=== PATIENT | female | born 1965 | race African-American/Black ===

== ENCOUNTER 2016-09-17 05:06 | Emergency (ER) | payer MEDICAID, OTHER ==
[~2016-09-17] VITALS: Ht 167.6 cm; Wt 69.9 kg
--- NOTE | 2016-09-17 05:07 | NUR ---
IN RESTROOM. AWARE
--- NOTE | 2016-09-17 05:15 | NUR ---
51 YO FEMALE BB SELF. 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 PT DENIES SOB, N/V, RADIATING PAIN OR ANY OTHER MEDICAL COMPLAINTS. PT AMBULATED TO ER BED ITH STEAY AGIT, SKIN WARM AND DRY, RR EVEN AND UNLABORED. PT GOWNED, PLACED ON ELECTROMECHANICAL TECHNOLOGIST. AWAITING ORDERS FROM PROVIDER, WILL CONTINUE TO MONITOR
--- NOTE | 2016-09-17 05:18 | NUR ---
MD STEVESN AT BED SIDE FOR EVAL
--- NOTE | 2016-09-17 05:21 | NUR ---
18G LEFT AC IV STARTED, BLOOD SAMPLE OBTAINED AND SENT TO LAB
[2016-09-17] MEDS ORDERED: SUMATRIPTAN SUCCINATE 6 MG/0.5 ML VIAL SQ ONE ×2 (05:30→05:33)
[2016-09-17] MEDS ORDERED: IV NS 0.9% 1,000 ML BAG IV ONE (05:30)
[2016-09-17] MEDS ORDERED: METOCLOPRAMIDE HCL 10 MG/2 ML VIAL IV ONE (05:30)
[2016-09-17] MEDS ORDERED: IV SET PRIMARY 1 EA INFUS.SET MC ONE (05:33)
[2016-09-17] MEDS ORDERED: METOCLOPRAMIDE HCL 10 MG/2 ML VIAL ONE (05:33)
[2016-09-17] MEDS ORDERED: IV NS 0.9% 1,000 ML ONE (05:33)
--- NOTE | 2016-09-17 05:35 | NUR ---
MEDICATED PT ORDERED
[2016-09-17 05:42] LABS: BASOPHILS # (AUTO) 0.1 /CMM (0.0-0.2); BASOPHILS % (AUTO) 0.9 % (0.0-2.0); EOSINOPHILS # (AUTO) 0.3 /CMM (0.0-0.7); EOSINOPHILS % (AUTO) 4.4 % (0.0-6.0); HEMATOCRIT 38 % (33-45); LYMPHOCYTES % (AUTO) 33.4 % (20.0-44.0); MEAN CORPUSCULAR HEMOGLOBIN 31 PG (26.0-33.0); MEAN CORPUSCULAR HGB CONC 34 g/dl (31.0-36.0); MEAN CORPUSCULAR VOLUME 91 fL (82-100); MONOCYTES # (AUTO) 0.5 /CMM (0.1-1.30); MONOCYTES % (AUTO) 8.5 % (2.0-12.0); NEUTROPHILS # (AUTO) 3.1 /CMM (1.8-8.9); NEUTROPHILS % (AUTO) 52.8 % (43.0-81.0); PLATELET COUNT (AUTO) 288 /CMM (150-450); RDW COEFFICIENT OF VARIATION 13.6 (11.5-15.0); RED BLOOD CELL COUNT(AUTO) 4.15 MIL/uL (4.0-5.2); WHITE BLOOD COUNT (AUTO) 5.9 K/uL (4.3-11.0)
[2016-09-17 05:55] LABS: INR 0.96 (0.87-1.13); PROTHROMBIN TIME 10.2 SECS (9.5-12.7)
[2016-09-17 05:56] LABS: CALCIUM, SERUM 8.2 mg/dL (8.5-10.1); CARBON DIOXIDE 31 mmol/L (21-32); CHLORIDE 105 mmol/L (98-107); CREATININE 0.7 mg/dL (0.6-1.3); GFR 89 mL/min (>60); GLUCOSE 96 mg/dL (74-106); POTASSIUM 3.5 mmol/L (3.5-5.1); SODIUM SERUM 141 mmol/L (136-145); UREA NITROGEN, BLOOD 7 mg/dL (7-18)
--- NOTE | 2016-09-17 06:01 | NUR ---
EMT AT BED SIDE TO TRANSPORT TO [facility] FOR CT SCAN
[2016-09-17 06:02] LABS: TROPONIN I < 0.017 ng/mL (0.00-0.056)
--- NOTE | 2016-09-17 06:52 | NUR ---
PT RETURNED FROM CT VIA AMBULANCE
[2016-09-17 07:51] VITALS: BP 107/65
--- NOTE | 2016-09-17 07:51 | NUR ---
Patient discharged to home in stable condition. Written and verbal after care instructions given. Patient verbalizes understanding of instruction.
== END 2016-09-17 07:52 | disposition home or self-care (01) ==
LOC: ER 05:10
DX: G43.909 Migraine, unspecified, not intractable, without status migrainosus (principal); R07.89 Other chest pain; I34.1 Nonrheumatic mitral (valve) prolapse; E03.9 Hypothyroidism, unspecified; F41.9 Anxiety disorder, unspecified; Z86.73 Personal history of transient ischemic attack (TIA), and cerebral infarction without residual deficits
CPT/HCPCS: 36415; 70450; 71010; 80048; 84484; 84703; 85025; 85730; 93005; 96361; 96372; 96374; 99285; A4606; J2765; J3030; J7030; Z7610

== ENCOUNTER 2016-10-18 07:03 | Emergency (ER) | payer OTHER ==
[~2016-10-18] VITALS: Ht 170.2 cm; Wt 63.5 kg
[2016-10-18] MEDS ORDERED: IBUPROFEN 600 MG TABLET PO ONE ×2 (07:36→08:00)
[2016-10-18 07:50] VITALS: BP 6/2
== END 2016-10-18 07:53 | disposition home or self-care (01) ==
LOC: ER 07:08
DX: S09.90XA Unspecified injury of head, initial encounter (principal); S80.211A Abrasion, right knee, initial encounter; I34.1 Nonrheumatic mitral (valve) prolapse; E03.9 Hypothyroidism, unspecified; Z86.73 Personal history of transient ischemic attack (TIA), and cerebral infarction without residual deficits; W01.198A Fall on same level from slipping, tripping and stumbling with subsequent striking against other object, initial encounter; Y93.K1 Activity, walking an animal; Y92.89 Other specified places as the place of occurrence of the external cause; Y99.9 Unspecified external cause status
CPT/HCPCS: 99282; A4606 ×2; A6402; A6403; Z7610 ×2

== ENCOUNTER 2018-02-01 10:59 | Emergency (ER) | payer OTHER ==
[~2018-02-01] VITALS: Ht 170.2 cm; Wt 68.0 kg
[2018-02-01 10:59] VITALS: BP 137/82
[2018-02-01] MEDS ORDERED: CEPHALEXIN MONOHYDRATE 500 MG CAPSULE PO ONE ×2 (11:09→11:30)
== END 2018-02-01 11:14 | disposition home or self-care (01) ==
LOC: ER 11:03
DX: S60.861A Insect bite (nonvenomous) of right wrist, initial encounter (principal); L08.89 Other specified local infections of the skin and subcutaneous tissue; F41.9 Anxiety disorder, unspecified; F43.10 Post-traumatic stress disorder, unspecified; E03.9 Hypothyroidism, unspecified; F10.10 Alcohol abuse, uncomplicated; Y90.9 Presence of alcohol in blood, level not specified; Z86.73 Personal history of transient ischemic attack (TIA), and cerebral infarction without residual deficits; W57.XXXA Bitten or stung by nonvenomous insect and other nonvenomous arthropods, initial encounter; Y93.89 Activity, other specified; Y92.89 Other specified places as the place of occurrence of the external cause; Y99.8 Other external cause status
CPT/HCPCS: 99283; A4606; Z7610

== ENCOUNTER 2019-10-14 15:51 | Inpatient (IN) | payer MEDICAID, OTHER ==
[~2019-10-14] VITALS: Ht 170.2 cm; Wt 70.3 kg
--- NOTE | 2019-10-14 16:49 | NUR ---
CAME IN FOR RLQ PAIN R/T BACK & NAUSEA STARTED THIS AFTERNOON ALSO C/O NOSEBLEED x 1WEEK, DIARRHEA x 1WEEK, TO ER BED 4, HOOKED TO MONITOR, CHANGED TO HOSP GOWN, WARM BLANKET PROVIDED. PATIENT AAO x 4, BREATHING EVEN AND UNLABORED. AWAITING MD NEAL.
--- NOTE | 2019-10-14 17:08 | NUR ---
DR ARAYA AT BEDSIDE
[2019-10-14 17:28] LABS: BASOPHILS % (AUTO) 0.3 % (0.0-2.0); EOSINOPHILS % (AUTO) 0.3 % (0.0-6.0); HEMATOCRIT 39 % (33-45); LYMPHOCYTES # (AUTO) 1.4 /CMM (0.8-4.8); MEAN CORPUSCULAR HGB CONC 34 g/dl (31.0-36.0); MEAN CORPUSCULAR VOLUME 92 fL (82-100); MONOCYTES # (AUTO) 0.8 /CMM (0.1-1.30); MONOCYTES % (AUTO) 5.2 % (2.0-12.0); NEUTROPHILS # (AUTO) 13.1 /CMM (1.8-8.9); NEUTROPHILS % (AUTO) 85.2 % (43.0-81.0); PLATELET COUNT (AUTO) 257 /CMM (150-450); WHITE BLOOD COUNT (AUTO) 15.4 K/uL (4.3-11.0)
[2019-10-14] MEDS ORDERED: KETOROLAC TROMETHAMINE INJ 30 MG/ML VIAL IV ONE (17:30)
[2019-10-14] MEDS ORDERED: IV NS 0.9% 1,000 ML BAG IV ONE (17:30)
[2019-10-14] MEDS ORDERED: KETOROLAC TROMETHAMINE 15 MG/ML VIAL ONE (17:35)
[2019-10-14] MEDS ORDERED: ONDANSETRON HCL/PF 4 MG/2 ML VIAL ONE (17:35)
[2019-10-14] MEDS: ONDANSETRON HCL/PF 4 MG/2 ML VIAL IVP ONE ×2 (17:36→17:41)
[2019-10-14 17:38] LABS: CALCIUM, SERUM 9.1 mg/dL (8.5-10.1); CREATININE 0.6 mg/dL (0.6-1.3); POTASSIUM 4.4 mmol/L (3.5-5.1)
[2019-10-14 17:44] LABS: ALBUMIN 4.1 g/dL (3.4-5.0); BILIRUBIN,DIRECT 0.1 mg/dL (0.0-0.2); BILIRUBIN,TOTAL 0.4 mg/dL (0.2-1.0); TOTAL PROTEIN, SERUM 7.4 g/dL (6.4-8.2)
[2019-10-14] MEDS ORDERED: IV NS 0.9% 250 ML IV ONE (17:56)
[2019-10-14] MEDS ORDERED: CT SWABBABLE VALVE TRANS SET 1 EA INFUS.SET MC ONE (17:56)
[2019-10-14] MEDS ORDERED: IOHEXOL-300 100 ML VIAL IV ONE (17:56)
[2019-10-14] MEDS ORDERED: LEVO50TA8 PO (18:41)
--- NOTE | 2019-10-14 18:45 | NUR ---
RADHA CARIAS [phone]
[2019-10-14 18:48] LABS: APPEARANCE,URINE Clear (CLEAR); BILIRUBIN,URINE Negative (NEGATIVE); BLOOD, URINE Negative Ery/uL (NEGATIVE); COLOR,URINE Yellow (YELLOW); KETONES,URINE Negative (NEGATIVE); LEUKOCYTE ESTERASE ,URINE Negative (NEGATIVE); NITRITE, URINE Negative (NEGATIVE); PH,URINE 8.5 (5.0-8.0); PROTEIN,URINE Negative (NEGATIVE); UGLUCOSE Negative (NEGATIVE); UROBILINOGEN,URINE 0.2 EU/dL (0.2)
--- NOTE | 2019-10-14 19:24 | NUR ---
REPORT GIVEN TO HARRIET CARRILLO FOR CRISTINE
[2019-10-14] MEDS ORDERED: CEFTRIAXONE 1GM BAG (ER ONLY) 1 GM/50 ML PIGGYBACK IV ONE (19:30)
[2019-10-14] MEDS ORDERED: CEFTRIAXONE 1GM BAG (ER ONLY) 50 ML IV ONE (19:44)
--- NOTE | 2019-10-14 20:22 | NUR ---
REPORT GIVEN TO GERARDO CODY
--- NOTE | 2019-10-14 20:40 | NUR ---
ADMISSION NOTES: RECEIVED REPORT FROM HARRIET CARRILLO, PT WAS BROUGHT TO THE UNIT VIA WHEELCHAIR AT 2027. PT IS A/O X4, ON RA RESPIRATIONS EVEN AND UNLABORED. PT C/O RLQ PAIN, RECEIVED TORADOL 2HRS AGO. AWAITING ORDERS FROM HOSPITALIST . ADMISSION QUESTIONNAIRES COMPLETED. PT HAS RIGHT AC G 18, PATENT AND FLUSHING WELL, ON HL. ORIENTED PT TO UNIT POLICY AND HOURLY ROUNDING, USE OF CALL LIGHT SYSTEM. SKIN ASSESSMENT PERFORMED, NO SKIN ISSUES NOTED. PLACED HAT ON TOILET BOWL, INSTRUCTED PT THAT IN CASE SHE WILL HAVE BOWEL MOVEMENT, THEN WE'LL COLLECT STOOL PT WAS CLAIMING SHE'S BEEN HAVING LOOSE STOOL FOR A MONTH NOW, 2X A DAY BM. VS TAKEN AND RECORDED, INVENTORY OF BELONGING COMPLETED BY THA REEVES. SAFETY PRECAUTIONS FOR FALL INITIATED, CALL LIGHT IN REACH, WILL CONTINUE MONITORING PT.
[2019-10-14 20:48] VITALS: BP_SYST 127; BP_SYST 99; BP_DIAS 53; BP_DIAS 76
[2019-10-14] MEDS ORDERED: IV NS 0.9% 1,000 ML IV PRN (20:53)
[2019-10-14] MEDS ORDERED: MAG HYDROX/AL HYDROX/SIMETH 30 ML UDC PO PRN (21:00)
[2019-10-14] MEDS ORDERED: ONDANSETRON HCL/PF 4 MG/2 ML VIAL IVP PRN (21:00)
[2019-10-14] MEDS ORDERED: MAGNESIUM HYDROXIDE 30 ML UDC PO PRN (21:00)
[2019-10-14] MEDS ORDERED: ACETAMINOPHEN 325 MG TABLET PO PRN (21:00)
[2019-10-14] MEDS ORDERED: MORPHINE SULFATE INJ 2 MG/ML DISP.SYRIN IV PRN (21:00)
[2019-10-14] MEDS ORDERED: HYDROCODONE/APAP 5/325MG 1 EACH TABLET PO PRN (21:00)
[2019-10-14] MEDS ORDERED: Z GUARD REMEDY 2 OZ OINT TP PRN (21:00)
--- NOTE | 2019-10-14 21:15 | NUR ---
RN NOTES: 2106- RECEIVED CALL FROM DR CHIKI CARIAS, TELEPHONE ORDER RECEIVED TO OBTAIN CONSENT FOR LAPAROSCOPIC APPENDECTOMY POSSIBLE OPEN EXPLORATION, PLACE PT NPO Nette BYRD, FOR SURGERY TOMORROW MORNING 10/15/2019. LEFT HIS PHONE NUMBER SO HE CAN SPEAK WITH THE PT. ALL ORDERS READ BACK VERIFIED AND CARRIED OUT.
--- NOTE | 2019-10-14 21:22 | NUR ---
PRN MORPHINE: PT C/O 12/12 RLQ PAIN DESCRIBE SHARP PAIN, REQUESTING FOR PAIN MEDICATION, PRN MORPHINE 2MG IVP ADMINISTERED TO PT AT THIS TIME. WILL CONTINUE TO MONITOR AND REASSESS PT.
[2019-10-14] MEDS: PIPERACILLIN /TAZOBACTAM 3.375 G in IV D5W 50 ML IV SCH (22:07)
--- NOTE | 2019-10-14 23:40 | NUR ---
RN NOTES/SURGERY MD CONSULT/CONSENT: AT 2106- RECEIVED CALL FROM DR CHIKI CARIAS, TELEPHONE ORDER RECEIVED TO OBTAIN CONSENT FOR LAPAROSCOPIC APPENDECTOMY POSSIBLE OPEN EXPLORATION, PLACE PT TRINYO Nette BYRD, FOR SURGERY TOMORROW MORNING 10/15/2019. MD LEFT HIS PHONE NUMBER SO HE CAN SPEAK WITH THE PT. 2126-- INFORMED PT ABOUT THE CALL OF SURGEON, AND PLAN FOR SURGERY, PER PT SHE DOESNT HAVE ANY QUESTIONS FOR THE SURGEON SHE IS MORE THAN WILLING TO DO THE APPENDECTOMY, INFORMED PT THE CALL IS NECESSARY FOLLOWING THE PROTOCOL, ALSO PT REQUESTED THAT SHE DOESNT WANT ANY VIDEO CALL WITH THE DOCTOR, ONLY PLAIN PHONE CALL ACCORDING TO THE PT "I DON'T LOOK PRESENTABLE AT THIS TIME" (in her own words). PT SPOKED WITH MD USING CHARGE NURSE PHONE, MD EXPLAIN ABOUT PROCEDURE RISK AND BENEFITS. 2324--PT AGREE FOR THE PROCEDURE, CONSENT SIGNED BY THE PT (PROCEDURE/ANESTHESIA, AND BLOOD). ATTACHED TO CHART.
--- NOTE | 2019-10-15 | NUR ---
rn notes: placed on cdiff isolation, r/o cdiff as pt stated she has been having diarrhea, loose stool for over a month now and has episode of 2 loose bm yesterday prior to admission.
--- NOTE | 2019-10-15 00:10 | NUR ---
rn notes: spoked with pt gprovided with instruction that we will collect stool specimen when she have bm, hat placed in toilet bowl, will send stool for cdiff. pt agree and understand.
--- NOTE | 2019-10-15 01:16 | NUR ---
RN NOTES: NOTIFIED EPIC HOSPITALIST , TELEPHONE ORDER RECEIVED STAT ORDER FOR COVID SWAB PT FOR SURGERY IN AM. NEW O.R PROTOCOL THAT EVERY PT NEEDS TO BE SWAB BEFORE SURGERY.
--- NOTE | 2019-10-15 02:51 | NUR ---
RN NOTES: PLACED ON DROPLET/CONTACT/AIRBORNE ISOLATION PENDING COVID19 RESULT. PPE UTILIZED INCLUDING USE OF FACE SHIELD
[2019-10-15] MEDS: PIPERACILLIN /TAZOBACTAM 3.375 G in IV D5W 50 ML IV SCH (03:54)
--- NOTE | 2019-10-15 06:35 | NUR ---
rn notes: pt requested to be disconnected from ivf, as she would like to do am care prior to surgery. toiletries provided. vs taken and recorded. lab drawn by cartoon animator.
[2019-10-15 06:36] VITALS: BP 101/51
[2019-10-15] MEDS ORDERED: ANESTHESIA TRAY IN PYXIS 1 EA TRAY MC ONE (06:47)
[2019-10-15] MEDS ORDERED: LIDOCAINE HCL/MPF 1% 30 ML VIAL IJ ONE (06:47)
[2019-10-15] MEDS ORDERED: BUPIVACAINE MPF 0.5% W/EPI INJ 30 ML VIAL ONE (06:48)
[2019-10-15 06:52] LABS: BASOPHILS % (AUTO) 0.6 % (0.0-2.0); EOSINOPHILS % (AUTO) 3.7 % (0.0-6.0); HEMATOCRIT 34 % (33-45); HEMOGLOBIN 11.8 g/dL (11.5-14.8); LYMPHOCYTES # (AUTO) 1.5 /CMM (0.8-4.8); LYMPHOCYTES % (AUTO) 21.3 % (20.0-44.0); MEAN CORPUSCULAR HGB CONC 34 g/dl (31.0-36.0); MEAN CORPUSCULAR VOLUME 92 fL (82-100); MONOCYTES # (AUTO) 0.5 /CMM (0.1-1.30); NEUTROPHILS # (AUTO) 4.7 /CMM (1.8-8.9); NEUTROPHILS % (AUTO) 67.4 % (43.0-81.0); PLATELET COUNT (AUTO) 240 /CMM (150-450); RED BLOOD CELL COUNT(AUTO) 3.72 MIL/uL (4.0-5.2)
--- NOTE | 2019-10-15 06:53 | NUR ---
rn notes: report given to or staff . cloth picker by or staff via bed. all consent signed, checklist completed, npo po mn. for lap appy with supervision of dr mojica.iv access remains patent and flushing well, infusing with ns at 75ml/hr, no s/s of iv infiltration noted.
--- NOTE | 2019-10-15 06:59 | NUR ---
end of shift report: pt p/u by or staff. left by bed. for laparoscopic appendectomy possible open exploration. pt currently in or. all belongings in the room. door closed. kept on isolation pending covid test result and r/o cdiff.
--- NOTE | 2019-10-15 07:06 | NUR ---
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 contacted hawk in or, and informed hawk about what stated, during conversation, hawk stated dr chisholm is there to see the pt.
[2019-10-15 07:15] LABS: CALCIUM, SERUM 7.7 mg/dL (8.5-10.1); CREATININE 0.8 mg/dL (0.6-1.3); MAGNESIUM 1.9 mg/dL (1.8-2.4); PHOSPHORUS 4.5 mg/dL (2.5-4.9); POTASSIUM 3.5 mmol/L (3.5-5.1)
[2019-10-15] MEDS ORDERED: MIDAZOLAM HCL 2 MG/2ML VIAL ONE (07:16)
[2019-10-15] MEDS ORDERED: HYDROMORPHONE INJ 2 MG/ML DISP.SYRIN ONE (07:16)
[2019-10-15] MEDS ORDERED: ROCURONIUM BROMIDE 50 MG/5 ML ONE (07:17)
[2019-10-15] MEDS: LEVOTHYROXINE SODIUM 50 MCG TABLET PO SCH (07:30)
--- NOTE | 2019-10-15 07:39 | NUR ---
RN NOTES RECEIVED REPORT FROM [facility] NURSE NURSE, PATIENT NOT ON UNIT, WENT TO SURGERY FOR LAPAROSCOPIC APPENDECTOMY. WILL CONTINUE TO MONITOR.
[2019-10-15] MEDS ORDERED: HYDROMORPHONE 1 MG/1 ML DISP.SYRIN ONE (08:57)
[2019-10-15] MEDS ORDERED: HYDROMORPHONE 1 MG/1 ML DISP.SYRIN IV PRN (09:30)
[2019-10-15] MEDS ORDERED: HYDROCODONE/APAP 10/325MG 1 EA TABLET PO PRN (09:30)
[2019-10-15] MEDS: IV LR 1000 ML 1,000 ML IV PRN ×2 (09:51→22:06)
[2019-10-15] MEDS: ZOSYN IVPB 3.375 G in IV D5W 50ml IV SCH ×3 (10:16→21:00)
--- NOTE | 2019-10-15 10:30 | NUR ---
RN NOTES CAME BACK FROM O.R, V/S CHECKED, BP IS LOW WITH BP OF 87/57. STARTED WITH FLUIDS, A/O X4. ABLE TO MAKE NEEDS KNOWN. NO COMPLAIN OF PAIN AT THIS TIME. ORDERS FROM DR. CARIAS MADE AND CARRIED OUT. SAFETY MEASURES IN PLACE, BED PLACE IN LOWEST LOCKED POSITION WITH SIDE RAILS UP X2. CALL LIGHT WITHIN EASY REACH. WILL CONTINUE TO MONITOR.
[2019-10-15 16:00] VITALS: BP 101/64
--- NOTE | 2019-10-15 18:33 | NUR ---
RN NOTES PATIENT IN BED RESTING COMFORTABLY IN MODERATE HIGH BACK REST, A/O X4. ABLE TO MAKE NEEDS KNOWN. S/P LAPAROSCOPIC APPENDECTOMY, NO SIGNS OF DISTRESS NOTED THROUGHOUT THE SHIFT, NO COMPLAIN OF PAIN. IV FLUIDS ON RAC #18 WITH LR RUNNING @100 ML/HR. PATENT AND INTACT. SAFETY MEASURES IN PLACE, BED PLACE IN LOWEST LOCKED POSITION WITH SIDE RAILS UP X2. CALL LIGHT WITHIN EASY REACH. WILL ENDORSE TO CRO NURSE FOR CRISTINE.
--- NOTE | 2019-10-15 19:30 | NUR ---
RN NOTES: PT S/P LAP APPY TODAY, PT DENIES ANY PAIN, SHE STATED IT FEELS SORE, BUT ITS TOLERABLE. MADE AWARE OF PAIN MEDS AVAILABLE, PT REQUESTED FOR SODA.
[2019-10-15 20:00] VITALS: BP 101/65
--- NOTE | 2019-10-15 21:00 | NUR ---
prn tylenol: pt c/o head ache, requesting for tylenol, 07/12 tylenol 650 mg tab po administered to pt at this time.
--- NOTE | 2019-10-15 21:10 | NUR ---
rn notes: notified md regional coordinator about pt. no antocoagulant order, s/p lap appendectomy, no new orders received at this time
[2019-10-16 06:32] LABS: MAGNESIUM 1.9 mg/dL (1.8-2.4); PHOSPHORUS 3.8 mg/dL (2.5-4.9)
[2019-10-16 06:39] LABS: BASOPHILS % (AUTO) 0.1 % (0.0-2.0); EOSINOPHILS % (AUTO) 0.1 % (0.0-6.0); HEMATOCRIT 33 % (33-45); LYMPHOCYTES # (AUTO) 1.3 /CMM (0.8-4.8); LYMPHOCYTES % (AUTO) 12.5 % (20.0-44.0); MEAN CORPUSCULAR HGB CONC 34 g/dl (31.0-36.0); MEAN CORPUSCULAR VOLUME 94 fL (82-100); MONOCYTES # (AUTO) 0.6 /CMM (0.1-1.30); MONOCYTES % (AUTO) 5.6 % (2.0-12.0); NEUTROPHILS # (AUTO) 8.3 /CMM (1.8-8.9); NEUTROPHILS % (AUTO) 81.7 % (43.0-81.0); PLATELET COUNT (AUTO) 233 /CMM (150-450); RED BLOOD CELL COUNT(AUTO) 3.51 MIL/uL (4.0-5.2); WHITE BLOOD COUNT (AUTO) 10.1 K/uL (4.3-11.0)
--- NOTE | 2019-10-16 06:53 | NUR ---
END OF SHIFT REPORT: PT DENIES ANY ABDL PAIN, ONLY FEELING SORE ON ABDL AREA DUE TO SURGERY. IV ACCESS REMAINS PATENT AND FLUSHING WELL, INFUSING WITH LR AT 100ML/HR. NO REPORTED LOOSE BM THROUGHOUT THE SHIFT. PT TOLERATED PO INTAKE WELL, NO N/V NOTED. PT FOR DC HOME, EXIT CARE FILLED OUT. PT WILL BE NEEDING/REQUESTING PAIN MEDS PRESCRIPTION, WORK NOTES AND FOLLOW UP APPOINTMENT WITH SURGEON. ALL DUE MEDS ADMINISTERED. VS REMAINS STABLE, NEEDS ATTENDED. SAFETY PRECAUTIONS FOR FALL REMAINS ENGAGED, CALL LIGHT IN REACH, WILL ENDORSE TO DAY RN TORSTEN FOR CONTINUITY OF CARE.
--- NOTE | 2019-10-16 07:30 | NUR ---
PT RECEIVED RESTING COMFORTABLY IN BED. NO S/S OR C/O PAIN OR DISTRESS NOTED. SIDE RAILS UP X2, CALL LIGHT LEFT WITHIN REACH. WILL CONTINUE PLAN OF CARE.
[2019-10-16] MEDS: LEVOTHYROXINE SODIUM 50 MCG TABLET PO SCH (08:04)
[2019-10-16 10:12] LABS: IRON, SERUM 43 ug/dl (50-175); TOTAL IRON BINDING CAPACITY 248 ug/dl (250-450)
--- NOTE | 2019-10-16 10:13 | NUR ---
PAGED DR CARIAS RE DISCHARGE. STATED SHE IS CLEARED FOR DISCHARGE. WILL CARRY OUT.
[2019-10-16 10:29] LABS: FERRITIN 73 ng/mL (8-388)
--- NOTE | 2019-10-16 10:53 | NUR ---
DISCHARGE INSTRUCTIONS GIVEN ORDERED. ENCOURAGED TO FOLLOW UP WITH PMD AND DR CARIAS INSTRUCTED. ALL QUESTIONS AND CONCERNS ADDRESSED. PATIENT VERBALIZED UNDERSTANDING. MEDICATION RECONCILIATION FORM COMPLETED AND COPY GIVEN TO PATIENT. IV REMOVED WITH CATHETER INTACT, PRESSURE DRESSING APPLIED. PATIENT TAKEN TO VEHICLE WITH ALL PERSONAL BELONGINGS, ACCOMPANIED BY STAFF MEMBER. NO DISTRESS NOTED AT TIME OF DEPARTURE.
== END 2019-10-16 10:57 | disposition home or self-care (01) | DRG 710 ==
LOC: ER 16:04 → MEDSG2 20:07
PROVIDERS: ADMIT Internal Medicine; ATTEND Internal Medicine
PROC: 0DTJ4ZZ Resection of Appendix, Percutaneous Endoscopic Approach (ICD-10-PCS; principal; 2019-10-15)
DX: A41.9 Sepsis, unspecified organism (principal); K35.33 Acute appendicitis with perforation, localized peritonitis, and gangrene, with abscess; E03.9 Hypothyroidism, unspecified; Z86.79 Personal history of other diseases of the circulatory system; F41.9 Anxiety disorder, unspecified; F43.10 Post-traumatic stress disorder, unspecified; X58.XXXA Exposure to other specified factors, initial encounter; Y92.9 Unspecified place or not applicable; Z79.890 Hormone replacement therapy; I34.1 Nonrheumatic mitral (valve) prolapse; N20.0 Calculus of kidney; Z86.73 Personal history of transient ischemic attack (TIA), and cerebral infarction without residual deficits
CPT/HCPCS: 36415; 71045-TC; 80048-TC; 80076-TC; 81000-TC; 82728-TC; 83540-TC; 83690-TC; 83735-TC; 83880; 84100-TC; 84703-TC; 85025-TC; 85610-TC; 85730-TC; 86850-TC; 87081-TC; 88304-TC; G0378; J0330; J0696; J1100; J1170; J1885; J2250; J2270; J2405; J2543; J2704; J2710; J2765; J3490; J7030; J7050; J7060; J7120; Q9967; U0003-CS